=== PATIENT | female | born 1975 | race African-American/Black ===

== ENCOUNTER 2018-03-28 20:52 | Emergency (ER) | payer MEDICAID ==
[~2018-03-28] VITALS: Ht 157.5 cm; Wt 56.8 kg
[2018-03-28 21:03] VITALS: Ht 157.5 cm; Wt 56.8 kg
[2018-03-28 21:17] VITALS: BP 131/81
== END 2018-03-28 21:17 | disposition home or self-care (01) ==
LOC: ED 20:52
DX: K08.89 Other specified disorders of teeth and supporting structures (principal)

== ENCOUNTER 2018-04-23 21:05 | Emergency (ER) | payer MEDICAID ==
[~2018-04-23] VITALS: Ht 157.5 cm; Wt 55.3 kg
[2018-04-23 21:13] VITALS: Ht 157.5 cm; Wt 55.3 kg
[2018-04-24 01:08] VITALS: BP 118/70
== END 2018-04-24 01:08 | disposition home or self-care (01) ==
LOC: ED 21:05
DX: S02.611A Fracture of condylar process of right mandible, initial encounter for closed fracture (principal); S62.622A Displaced fracture of middle phalanx of right middle finger, initial encounter for closed fracture; W51.XXXA Accidental striking against or bumped into by another person, initial encounter; Y93.89 Activity, other specified; Y92.89 Other specified places as the place of occurrence of the external cause; Y99.8 Other external cause status
CPT/HCPCS: 90715; A4570; J1885; J2270

== ENCOUNTER 2018-06-04 19:32 | Emergency (ER) | payer MEDICAID ==
[2018-06-04 20:03] VITALS: Ht 157.5 cm
[2018-06-04 20:54] VITALS: BP 140/87
== END 2018-06-04 20:54 | disposition home or self-care (01) ==
LOC: ED 19:32
DX: K08.89 Other specified disorders of teeth and supporting structures (principal)

== ENCOUNTER 2018-09-13 01:50 | Emergency (ER) | payer MEDICAID ==
[~2018-09-13] VITALS: Ht 157.5 cm; Wt 51.4 kg
[2018-09-13 01:58] VITALS: Ht 157.5 cm; Wt 51.4 kg
[2018-09-13 03:04] VITALS: BP 117/74
== END 2018-09-13 03:04 | disposition home or self-care (01) ==
LOC: ED 01:50
DX: K02.9 Dental caries, unspecified (principal); K08.89 Other specified disorders of teeth and supporting structures